=== PATIENT | female | born 1955 | race Caucasian/White ===

== ENCOUNTER 2017-10-09 08:52 | Day surgery (SDC) | payer MEDICARE ==
[2017-10-05 16:39] LABS: BASOPHILS % (AUTO) 0.3 % (0-1); EOSINOPHILS # (AUTO) 0.2 X10'3 (0-0.9); EOSINOPHILS % (AUTO) 1.9 % (0-6); LYMPHOCYTES # (AUTO) 3.6 X10'3 (1.1-4.8); LYMPHOCYTES % (AUTO) 32.8 % (21-51); MEAN CORPUSCULAR VOLUME 85.8 FL (78-98); MEAN PLATELET VOLUME 7.5 FL (7.4-10.4); MONOCYTES # (AUTO) 0.7 X10'3 (0-0.9); MONOCYTES % (AUTO) 6.5 % (2-12); NEUTROPHILS # (AUTO) 6.4 X10'3 (1.8-7.7); NEUTROPHILS % (AUTO) 58.5 % (42-75); PRE OP HEMATOCRIT 39.8 % (35.0-45.0); PRE OP HEMOGLOBIN 13.9 g/dL (12.0-16.0); PRE OP PLATELET COUNT 281 X10'3 (140-440); RED BLOOD COUNT 4.64 X10'6 (4.20-5.60); RED CELL DISTRIBUTION WIDTH 14.1 % (11.5-14.5)
[2017-10-05 16:57] LABS: ALBUMIN 4.3 G/DL (3.4-5.0); ALBUMIN/GLOBULIN RATIO 1.2 (1.1-1.5); ALKALINE PHOSPHATASE 76 IU/L (46-116); BLOOD UREA NITROGEN 16 MG/DL (7-18); BUN/CREATININE RATIO 18.8 (6.6-38.0); CALCIUM 9.7 MG/DL (8.5-10.1); CHLORIDE 106 MMOL/L (99-107); CREATININE 0.85 MG/DL (0.40-0.90); PRE OP ALT 42 U/L (30-65); PRE OP ANION GAP 8 (8-16); PRE OP AST 19 U/L (10-37); PRE OP BILIRUB, TOTAL 0.6 MG/DL (0.0-1.0); PRE OP GLUCOSE 112 MG/DL (70-104); PRE OP POTASSIUM 4.2 MMOL/L (3.4-5.1); PRE OP SODIUM 143 MMOL/L (135-145); TOTAL CARBON DIOXIDE 29.2 MMOL/L (24-32); eGFR 68 ML/MIN
[2017-10-05 17:09] LABS: PRE OP PROTIME 10.4 SECONDS (9.0-12.0)
[2017-10-05 17:10] LABS: PRE OP INR 1.1 INR
[~2017-10-09] VITALS: Ht 165.1 cm; Wt 80.7 kg
[2017-10-09] VITALS (19 sets, daily range): BP systolic 104–142; BP diastolic 38–84
[~2017-10-09 08:52] MED LIST: ATEN25TA PO; CEFOXITIN 1000 MG in NS IV.SOLN 100 ML IV ONE; CITA20TA16 PO; IBUP-1984 PO; METF10002; TRIA15OI9 TOP; famotidine 20mg tablet PO ONE
[2017-10-09] MEDS ORDERED: clindamycin phosphate 40gm vag cream ONE (09:07)
[2017-10-09] MEDS ORDERED: morphine 10mg/ml inj. ONE (09:08)
[2017-10-09] MEDS ORDERED: LIDOcaine 1% 30ml preserv. free vial ONE (09:09)
[2017-10-09] MEDS ORDERED: ceFAZolin 1000mg inj ONE (09:09)
[2017-10-09] MEDS ORDERED: BUPIVAcaine/PF 2.5 mg/ml (0.25%) 30ml vial ONE (09:09)
[2017-10-09] MEDS ORDERED: vasoPRESSIN 20 units/ml inj. ONE (09:10)
[2017-10-09] MEDS ORDERED: LIDOcaine 1% (10mg/ml) 2ml vial ONE (09:15)
[2017-10-09] MEDS: ringers solution, lacted 1,000 ML IV SCH ×6 (09:22→21:10)
[2017-10-09] MEDS ORDERED: sevoflurane 250ml liquid IH ONE (10:55)
[2017-10-09] MEDS ORDERED: fentaNYL /PF 50mcg/ml 5ml ampule ONE (10:59)
[2017-10-09] MEDS ORDERED: midazolam 2 mg/2 ml injection ONE (10:59)
[2017-10-09] MEDS ORDERED: rocuronium 10mg/ml inj IV ONE (11:01)
[2017-10-09] MEDS ORDERED: LIDOcaine 2% (20mg/ml) 5ml vial ONE (11:01)
[2017-10-09] MEDS ORDERED: propofol inj 20 ML IV ONE (11:01)
[2017-10-09] MEDS ORDERED: ketorolac trometh. 30mg/ml inj. ONE (11:25)
[2017-10-09] MEDS ORDERED: fluoroscein sod 10% (100mg/ml) 5ml vial ONE (11:25)
[2017-10-09] MEDS ORDERED: ondansetron/PF 4mg/2ml inj ONE (11:25)
[2017-10-09] MEDS ORDERED: ringers solution, lacted 1,000 ML IV SCH (13:02)
[2017-10-09] MEDS ORDERED: morphine 2 MG/ML inj. syringe IV PRN ×2 (13:05)
[2017-10-09] MEDS ORDERED: meperidine/PF 50mg/ml syringe IV PRN ×3 (13:05)
[2017-10-09] MEDS ORDERED: ondansetron/PF 4mg/2ml inj IV PRN ×2 (13:05→13:10)
[2017-10-09] MEDS ORDERED: proCHLORperazine 10 MG/2 ml inj IV PRN (13:05)
[2017-10-09] MEDS ORDERED: diphenhydrAMINE 50 mg/ml inj IV PRN (13:10)
[2017-10-09] MEDS ORDERED: magnesium hydroxide 30ml (MOM) UD suspension PO PRN (13:10)
[2017-10-09] MEDS ORDERED: normal saline 500ml IV soln 500 ML IV PRN (13:10)
[2017-10-09] MEDS ORDERED: naloxone 0.4 mg/ml inj IV PRN (13:10)
[2017-10-09] MEDS ORDERED: ketorolac trometh. 30mg/ml inj. IV PRN (13:10)
[2017-10-09] MEDS ORDERED: HYDROcodone/acetaminophen 5mg/325mg tablet PO PRN ×2 (13:10)
[2017-10-09] MEDS ORDERED: CADD PCA waste documentation MC PRN (13:10)
[2017-10-09] MEDS ORDERED: temazepam 15mg capsule PO PRN (13:10)
[2017-10-09] MEDS: morphine/NS 5 mg/ml CADD 50 ML IV SCH ×6 (14:29→23:00)
[2017-10-09] MEDS: simethicone 80mg chew tab PO SCH (18:00)
[2017-10-09] MEDS: metFORMIN 500mg tablet PO SCH (19:36)
[2017-10-09] MEDS: docusate sod 100mg capsule PO SCH (19:36)
[2017-10-09] MEDS ORDERED: triamcinolone acetonide 0.1% ointment 15gm TP SCH (20:00)
[2017-10-10] MEDS: morphine/NS 5 mg/ml CADD 50 ML IV SCH ×4 (01:00→07:00)
[2017-10-10 04:31] VITALS: BP 118/61
[2017-10-10] MEDS: ringers solution, lacted 1,000 ML IV SCH (05:25)
[2017-10-10 06:31] LABS: BASOPHILS % (AUTO) 0.2 % (0-1); EOSINOPHILS # (AUTO) 0.2 X10'3 (0-0.9); EOSINOPHILS % (AUTO) 1.3 % (0-6); HEMATOCRIT 31.9 % (35.0-45.0); HEMOGLOBIN 11.4 g/dl (12.0-16.0); LYMPHOCYTES # (AUTO) 2.2 X10'3 (1.1-4.8); MEAN CORPUSCULAR HGB CONC 35.5 % (33.0-36.5); MEAN CORPUSCULAR VOLUME 84.6 FL (78-98); MEAN PLATELET VOLUME 7.4 FL (7.4-10.4); MONOCYTES # (AUTO) 0.9 X10'3 (0-0.9); MONOCYTES % (AUTO) 6.4 % (2-12); NEUTROPHILS # (AUTO) 11.4 X10'3 (1.8-7.7); NEUTROPHILS % (AUTO) 77.1 % (42-75); PLATELET COUNT 230 X10'3 (140-440); RED BLOOD COUNT 3.78 X10'6 (4.20-5.60); RED CELL DISTRIBUTION WIDTH 13.9 % (11.5-14.5); WHITE BLOOD COUNT 14.8 X10'3 (4.5-11.0)
[2017-10-10] MEDS ORDERED: citalopram 20mg tablet PO SCH (08:00)
[2017-10-10] MEDS ORDERED: metoprolol succinate 25mg (24-HOUR) SR. Tablet PO SCH (08:00)
[2017-10-10 08:07] VITALS: BP 104/49
[2017-10-10] MEDS: metFORMIN 500mg tablet PO SCH (08:17)
[2017-10-10] MEDS: docusate sod 100mg capsule PO SCH (08:18)
[2017-10-10] MEDS: simethicone 80mg chew tab PO SCH (08:20)
[2017-10-10 11:30] VITALS: BP 120/60
== END 2017-10-10 15:13 | disposition home or self-care (01) ==
LOC: PAS 08:52 → SUR 3N 13:10 → PAS 10-10 15:13
PROVIDERS: ATTEND Specialist
DX: N83.322 Acquired atrophy of left fallopian tube (principal); N83.321 Acquired atrophy of right fallopian tube; N80.0 Endometriosis of uterus; N88.8 Other specified noninflammatory disorders of cervix uteri; K66.0 Peritoneal adhesions (postprocedural) (postinfection); M19.90 Unspecified osteoarthritis, unspecified site; J45.909 Unspecified asthma, uncomplicated; E11.9 Type 2 diabetes mellitus without complications; G43.909 Migraine, unspecified, not intractable, without status migrainosus; I10 Essential (primary) hypertension; E66.9 Obesity, unspecified; F32.9 Major depressive disorder, single episode, unspecified; Z88.6 Allergy status to analgesic agent; Z68.29 Body mass index [BMI] 29.0-29.9, adult; Z98.890 Other specified postprocedural states; Z79.84 Long term (current) use of oral hypoglycemic drugs; Z79.1 Long term (current) use of non-steroidal anti-inflammatories (NSAID); Z79.899 Other long term (current) drug therapy; Z87.891 Personal history of nicotine dependence
CPT/HCPCS: 36415; 51992; 57240; 57268; 58552; 80053; 82948; 85025; 85610; 85730; 86885; 86900; 86901; 86920; A4315; A4355; C1771; J0690; J0694; J1885; J2001; J2250; J2270; J2405; J2704; J3010; J3490; J7030; J7042; J7120; 86870; 86902; 86905; 86922; 88302; 88307; A6250; A7000

== ENCOUNTER 2019-10-13 15:51 | Emergency (ER) | payer MEDICARE ==
[~2019-10-13] VITALS: Ht 165.1 cm; Wt 77.3 kg
[~2019-10-13 15:51] MED LIST changes: -CEFOXITIN 1000 MG in NS IV.SOLN 100 ML IV ONE; +METF-438; -METF10002; -famotidine 20mg tablet PO ONE
[2019-10-13 16:04] VITALS: BP 150/79
[2019-10-13] MEDS ORDERED: AZIT500T PO (17:08)
== END 2019-10-13 17:47 | disposition home or self-care (01) ==
LOC: ER 15:52
DX: J18.9 Pneumonia, unspecified organism (principal); Z20.828 Contact with and (suspected) exposure to other viral communicable diseases; J06.9 Acute upper respiratory infection, unspecified; I10 Essential (primary) hypertension; E11.9 Type 2 diabetes mellitus without complications; F41.9 Anxiety disorder, unspecified; Z79.2 Long term (current) use of antibiotics; Z79.899 Other long term (current) drug therapy
CPT/HCPCS: 36415; 71045; 87502; 87503; 87635; 99284

== ENCOUNTER 2021-09-26 19:55 | Emergency (ER) | payer BC, MEDICARE ==
[~2021-09-26] VITALS: Ht 165.1 cm; Wt 72.7 kg
[2021-09-26 20:41] LABS: BASOPHILS # (AUTO) 0.1 X10'3 (0-0.2); BASOPHILS % (AUTO) 0.7 % (0-1); EOSINOPHILS # (AUTO) 0.2 X10'3 (0-0.9); EOSINOPHILS % (AUTO) 1.9 % (0-6); HEMATOCRIT 38.5 % (35.0-45.0); HEMOGLOBIN 13.6 g/dl (12.0-16.0); LYMPHOCYTES # (AUTO) 3.6 X10'3 (1.1-4.8); LYMPHOCYTES % (AUTO) 31.9 % (21-51); MEAN CORPUSCULAR HEMOGLOBIN 29.9 PG (27.0-31.0); MEAN CORPUSCULAR HGB CONC 35.4 g/dL (33.0-36.5); MEAN CORPUSCULAR VOLUME 84.4 FL (78-98); MEAN PLATELET VOLUME 7.9 FL (7.4-10.4); MONOCYTES # (AUTO) 0.8 X10'3 (0-0.9); NEUTROPHILS # (AUTO) 6.5 X10'3 (1.8-7.7); NEUTROPHILS % (AUTO) 58.5 % (42-75); PLATELET COUNT 254 X10'3 (140-440); RED BLOOD COUNT 4.56 X10'6 (4.20-5.60); RED CELL DISTRIBUTION WIDTH 13.5 % (11.5-14.5); WHITE BLOOD COUNT 11.2 X10'3 (4.5-11.0)
[2021-09-26 20:46] LABS: ALANINE AMINOTRANSFERASE 26 U/L (12-78); ALBUMIN 3.9 G/DL (3.4-5.0); ALBUMIN/GLOBULIN RATIO 1.1 (1.1-1.5); ALKALINE PHOSPHATASE 77 IU/L (46-116); BILIRUBIN,TOTAL 0.6 MG/DL (0.1-1.0); BLOOD UREA NITROGEN 15 MG/DL (7-18); BUN/CREATININE RATIO 18.3 (6.6-38.0); CALCIUM 9.2 MG/DL (8.5-10.1); CHLORIDE 105 MMOL/L (99-107); CREATININE 0.82 MG/DL (0.40-0.90); TOTAL PROTEIN 7.3 G/DL (6.4-8.2); eGFR 70 ML/MIN
[2021-09-26 20:53] LABS: ANION GAP 8 (8-16); GLUCOSE 218 MG/DL (70-104); POTASSIUM 3.7 MMOL/L (3.5-5.1); SODIUM 139 MMOL/L (135-145)
[2021-09-26] MEDS ORDERED: aspirin 325mg tablet PO ONE (20:55)
[2021-09-26 20:57] LABS: ASPARTATE AMINO TRANSFERASE 23 U/L (10-37)
[2021-09-26 21:50] VITALS: BP 161/80
== END 2021-09-26 21:54 | disposition home or self-care (01) ==
LOC: ER 19:56
DX: R07.89 Other chest pain (principal); R42 Dizziness and giddiness; R61 Generalized hyperhidrosis; I10 Essential (primary) hypertension; E11.9 Type 2 diabetes mellitus without complications; Z79.899 Other long term (current) drug therapy
CPT/HCPCS: 36415; 71045; 80053; 83880; 84484; 85025; 93005; 99285

== ENCOUNTER 2023-09-01 13:12 | Emergency (ER) | payer MEDICARE, MEDICAID ==
[~2023-09-01] VITALS: Ht 165.1 cm; Wt 68.5 kg
[2023-09-01 14:18] VITALS: TEMP 98.5
[2023-09-01 14:58] LABS: BASOPHILS # (AUTO) 0.1 X10'3 (0-0.2); BASOPHILS % (AUTO) 0.8 % (0-1); EOSINOPHILS # (AUTO) 0.2 X10'3 (0-0.9); EOSINOPHILS % (AUTO) 2.6 % (0-6); HEMATOCRIT 38.8 % (35.0-45.0); HEMOGLOBIN 13.5 g/dl (12.0-16.0); LYMPHOCYTES # (AUTO) 2.7 X10'3 (1.1-4.8); LYMPHOCYTES % (AUTO) 30.4 % (21-51); MEAN CORPUSCULAR HEMOGLOBIN 29.4 PG (27.0-31.0); MEAN CORPUSCULAR HGB CONC 34.8 g/dL (33.0-36.5); MEAN CORPUSCULAR VOLUME 84.4 FL (78-98); MEAN PLATELET VOLUME 7.2 FL (7.4-10.4); MONOCYTES # (AUTO) 0.7 X10'3 (0-0.9); MONOCYTES % (AUTO) 7.8 % (2-12); NEUTROPHILS # (AUTO) 5.1 X10'3 (1.8-7.7); NEUTROPHILS % (AUTO) 58.4 % (42-75); PLATELET COUNT 204 X10'3 (140-440); RED CELL DISTRIBUTION WIDTH 13.6 % (11.5-14.5); WHITE BLOOD COUNT 8.8 X10'3 (4.5-11.0)
[2023-09-01 15:02] LABS: CLARITY,URINE SLIGHTLY CLOUDY (Clear); COLOR,URINE ORANGE (Yellow); UA COLLECTION TYPE CLN CATCH MIDSTREAM
[2023-09-01 15:07] LABS: ANION GAP 7 (8-16); BLOOD UREA NITROGEN 18 MG/DL (7-18); BUN/CREATININE RATIO 22.5 (10.0-20.0); CHLORIDE 108 MMOL/L (99-107); GLUCOSE 100 MG/DL (70-104); LIPASE 63 U/L (16-77); POTASSIUM 4.6 MMOL/L (3.5-5.1); SODIUM 145 MMOL/L (135-145); TOTAL CARBON DIOXIDE 29.6 MMOL/L (24-32); eCRCL 63 ML/MIN; eGFR 72 ML/MIN
[2023-09-01 15:44] LABS: BACTERIA,URINE FEW /HPF (Neg); MUCUS STRANDS NONE SEEN /LPF (Neg); RBC,URINE 20-50 /HPF (0-2); SQUAMOUS EPITHELIAL CELL,UR FEW /LPF (FEW); WBC CLUMPS,URINE FEW /HPF (NEGATIVE); WBC,URINE 50-100 /HPF (0-4)
[2023-09-01] MEDS ORDERED: DIF150T PO (16:59)
[2023-09-01] MEDS ORDERED: PHEN-716 PO (16:59)
[2023-09-01] MEDS ORDERED: CEPH-585 PO (16:59)
[2023-09-01] MEDS: CefTRIAXone 1000mg IM Kit (w/lidocaine diluent) IM ONE (17:08)
[2023-09-01 17:15] VITALS: BP 129/66; PULSE 80; RESP 18; O2SAT 97
== END 2023-09-01 17:16 | disposition home or self-care (01) ==
LOC: ER 13:12
DX: N39.0 Urinary tract infection, site not specified (principal); E11.9 Type 2 diabetes mellitus without complications; I10 Essential (primary) hypertension; Z79.899 Other long term (current) drug therapy; Z79.1 Long term (current) use of non-steroidal anti-inflammatories (NSAID)
CPT/HCPCS: 36415; 74176; 80048; 81001; 83690; 85025; 87077; 87088; 87186; 96372; 99285; J0696

== ENCOUNTER 2023-10-08 07:56 | Emergency (ER) | payer OTHER, MEDICAID ==
[~2023-10-08] VITALS: Ht 165.1 cm; Wt 78.4 kg
[~2023-10-08 07:56] MED LIST changes: +PHEN-716 PO
[2023-10-08 08:03] VITALS: TEMP 98
[2023-10-08 08:42] LABS: BASOPHILS # (AUTO) 0.1 X10'3 (0-0.2); BASOPHILS % (AUTO) 0.8 % (0-1); EOSINOPHILS # (AUTO) 0.2 X10'3 (0-0.9); EOSINOPHILS % (AUTO) 2.5 % (0-6); HEMATOCRIT 39.2 % (35.0-45.0); HEMOGLOBIN 13.8 g/dl (12.0-16.0); LYMPHOCYTES # (AUTO) 2.5 X10'3 (1.1-4.8); LYMPHOCYTES % (AUTO) 27.1 % (21-51); MEAN CORPUSCULAR HGB CONC 35.3 g/dL (33.0-36.5); MEAN CORPUSCULAR VOLUME 84.8 FL (78-98); MEAN PLATELET VOLUME 6.9 FL (7.4-10.4); MONOCYTES # (AUTO) 0.6 X10'3 (0-0.9); MONOCYTES % (AUTO) 6.3 % (2-12); NEUTROPHILS # (AUTO) 5.8 X10'3 (1.8-7.7); NEUTROPHILS % (AUTO) 63.3 % (42-75); PLATELET COUNT 222 X10'3 (140-440); RED BLOOD COUNT 4.62 X10'6 (4.20-5.60); RED CELL DISTRIBUTION WIDTH 13.9 % (11.5-14.5); WHITE BLOOD COUNT 9.1 X10'3 (4.5-11.0)
[2023-10-08 09:20] LABS: BILIRUBIN,URINE NEGATIVE (Neg); CLARITY,URINE CLOUDY (Clear); COLOR,URINE YELLOW (Yellow); GLUCOSE, URINE NEGATIVE (Neg); KETONES,URINE NEGATIVE (Neg); LEUKOCYTE ESTERASE ,URINE SMALL (Neg); NITRITES, URINE NEGATIVE (Neg); OCCULT BLOOD,URINE LARGE (Neg); PH,URINE 5.5 (4.8-8.0); PROTEIN,URINE 30 mg/dl (Neg); UROBILINOGEN,URINE 0.2 E.U/dL (0.2-1.0)
[2023-10-08 09:29] LABS: BLOOD UREA NITROGEN 14 MG/DL (7-18); BUN/CREATININE RATIO 17.5 (10.0-20.0); CHLORIDE 108 MMOL/L (99-107); GLUCOSE 165 MG/DL (70-104); POTASSIUM 4.7 MMOL/L (3.5-5.1); SODIUM 141 MMOL/L (135-145); eCRCL 63 ML/MIN; eGFR 72 ML/MIN
[2023-10-08 09:30] LABS: UA COLLECTION TYPE CLN CATCH MIDSTREAM
[2023-10-08 09:33] LABS: MUCUS STRANDS FEW /LPF (Neg); RBC,URINE TNTC /HPF (0-2); SQUAMOUS EPITHELIAL CELL,UR MODERATE /LPF (FEW); WBC,URINE TNTC /HPF (0-4)
[2023-10-08 09:34] LABS: BACTERIA,URINE 2+ /HPF (Neg); WBC CLUMPS,URINE MANY /HPF (NEGATIVE)
[2023-10-08 09:50] LABS: URINE HCG NEGATIVE (NEG)
[2023-10-08 09:50] LABS: ALANINE AMINOTRANSFERASE 22 U/L (12-78); ALBUMIN 3.8 G/DL (3.4-5.0); ALKALINE PHOSPHATASE 66 IU/L (46-116); ANION GAP 9 (8-16); ASPARTATE AMINO TRANSFERASE 12 U/L (10-37); BILIRUBIN,TOTAL 0.3 MG/DL (0.1-1.0); CALCIUM 9.3 MG/DL (8.5-10.1); LIPASE 36 U/L (16-77); TOTAL CARBON DIOXIDE 23.7 MMOL/L (24-32); TOTAL PROTEIN 7.5 G/DL (6.4-8.2)
[2023-10-08] MEDS: CefTRIAXone 2gm/D5W 50ml BAG 50 ML IV ONE (11:28)
[2023-10-08] MEDS: morphine 4 MG/ML inj SYRINge IV PRN (11:29)
[2023-10-08] MEDS: ondansetron/PF 4mg/2ml inj IV ONE (11:30)
[2023-10-08] MEDS: normal saline 1000ML IV soln IVB ONE (11:30)
[2023-10-08 12:03] VITALS: BP 160/80; PULSE 60; O2SAT 98
[2023-10-08] MEDS: HYDROmorphone 1 mg/ml syringe IV ONE (12:46)
[2023-10-08 12:49] VITALS: RESP 22
[2023-10-08] MEDS: HYDROmorphone 1 mg/ml syringe IM ONE (12:49)
[2023-10-08] MEDS ORDERED: OXYC-145 PO (13:24)
[2023-10-08] MEDS ORDERED: CEPH-585 PO (13:24)
== END 2023-10-08 14:57 | disposition home or self-care (01) ==
LOC: ER 07:56
DX: N30.00 Acute cystitis without hematuria (principal); R10.30 Lower abdominal pain, unspecified; I10 Essential (primary) hypertension; E11.9 Type 2 diabetes mellitus without complications; Z79.899 Other long term (current) drug therapy; Z79.1 Long term (current) use of non-steroidal anti-inflammatories (NSAID)
CPT/HCPCS: 36415; 74176; 80053; 81001; 81025; 83690; 85025; 87088; 96365; 96372; 96375; 99285; J0696; J1170; J2270; J2405; J7030

== ENCOUNTER 2023-12-13 08:14 | Emergency (ER) | payer OTHER, MEDICAID ==
[~2023-12-13] VITALS: Ht 165.1 cm; Wt 74.1 kg
[~2023-12-13 08:14] MED LIST changes: +OXYC-145 PO
[2023-12-13 08:17] VITALS: BP 156/103; PULSE 60; RESP 16; TEMP 96.1; O2SAT 99
[2023-12-13 09:40] LABS: BILIRUBIN,URINE NEGATIVE (Neg); CLARITY,URINE CLOUDY (Clear); COLOR,URINE YELLOW (Yellow); GLUCOSE, URINE NEGATIVE (Neg); KETONES,URINE NEGATIVE (Neg); LEUKOCYTE ESTERASE ,URINE SMALL (Neg); NITRITES, URINE NEGATIVE (Neg); OCCULT BLOOD,URINE LARGE (Neg); PROTEIN,URINE 100 mg/dl (Neg); UROBILINOGEN,URINE 0.2 E.U/dL (0.2-1.0)
[2023-12-13 09:46] LABS: UA COLLECTION TYPE CLN CATCH MIDSTREAM
[2023-12-13 09:51] LABS: RBC,URINE TNTC /HPF (0-2); SQUAMOUS EPITHELIAL CELL,UR FEW /LPF (FEW); WBC,URINE TNTC /HPF (0-4)
[2023-12-13 09:53] LABS: BACTERIA,URINE FEW /HPF (Neg)
[2023-12-13] MEDS ORDERED: CEFD300C3 PO (10:09)
[2023-12-13] MEDS ORDERED: LACT1CAP26 PO (10:09)
[2023-12-13] MEDS ORDERED: PHEN-786 PO (10:09)
[2023-12-13] MEDS ORDERED: PANT-47 PO (10:09)
[2023-12-13] MEDS: HYDROcodone/acetaminophen 10/325mg tab PO ONE (10:49)
== END 2023-12-13 10:54 | disposition home or self-care (01) ==
LOC: ER 08:15
DX: N39.0 Urinary tract infection, site not specified (principal); R10.30 Lower abdominal pain, unspecified; R30.0 Dysuria; E11.9 Type 2 diabetes mellitus without complications; I10 Essential (primary) hypertension
CPT/HCPCS: 81001; 87088; 99283

== ENCOUNTER 2023-12-28 07:52 | Day surgery (SDC) | payer OTHER, MEDICAID ==
[2023-12-22 15:18] LABS: BILIRUBIN,URINE NEGATIVE (Neg); CLARITY,URINE CLOUDY (Clear); COLOR,URINE YELLOW (Yellow); GLUCOSE, URINE NEGATIVE (Neg); KETONES,URINE NEGATIVE (Neg); LEUKOCYTE ESTERASE ,URINE MODERATE (Neg); NITRITES, URINE NEGATIVE (Neg); OCCULT BLOOD,URINE LARGE (Neg); PROTEIN,URINE 100 mg/dl (Neg); UROBILINOGEN,URINE 0.2 E.U/dL (0.2-1.0)
[2023-12-22 15:34] LABS: BASOPHILS # (AUTO) 0.1 X10'3 (0-0.2); BASOPHILS % (AUTO) 0.8 % (0-1); EOSINOPHILS # (AUTO) 0.3 X10'3 (0-0.9); EOSINOPHILS % (AUTO) 3.2 % (0-6); LYMPHOCYTES # (AUTO) 3.4 X10'3 (1.1-4.8); LYMPHOCYTES % (AUTO) 33.9 % (21-51); MEAN CORPUSCULAR HEMOGLOBIN 29.5 PG (27.0-31.0); MEAN CORPUSCULAR VOLUME 84.2 FL (78-98); MEAN PLATELET VOLUME 7.4 FL (7.4-10.4); MONOCYTES # (AUTO) 0.6 X10'3 (0-0.9); MONOCYTES % (AUTO) 6.1 % (2-12); NEUTROPHILS # (AUTO) 5.7 X10'3 (1.8-7.7); PRE OP HEMATOCRIT 36.9 % (35.0-45.0); PRE OP HEMOGLOBIN 12.9 g/dL (12.0-16.0); PRE OP PLATELET COUNT 222 X10'3 (140-440); PRE OP WHITE BLOOD COUNT 10.1 10'3 (4.8-10.8); RED BLOOD COUNT 4.38 X10'6 (4.20-5.60); RED CELL DISTRIBUTION WIDTH 13.1 % (11.5-14.5)
[2023-12-22 15:36] LABS: ALBUMIN 4.1 G/DL (3.4-5.0); ALBUMIN/GLOBULIN RATIO 1.1 (1.1-1.5); ALKALINE PHOSPHATASE 62 IU/L (46-116); BLOOD UREA NITROGEN 19 MG/DL (7-18); BUN/CREATININE RATIO 20.7 (10.0-20.0); CALCIUM 8.9 MG/DL (8.5-10.1); CHLORIDE 108 MMOL/L (99-107); CREATININE 0.92 MG/DL (0.40-0.90); PRE OP ALT 26 U/L (30-65); PRE OP ANION GAP 8 (8-16); PRE OP AST 13 U/L (10-37); PRE OP BILIRUB, TOTAL 0.4 MG/DL (0.0-1.0); PRE OP GLUCOSE 86 MG/DL (70-104); PRE OP POTASSIUM 3.7 MMOL/L (3.4-5.1); PRE OP SODIUM 143 MMOL/L (135-145); TOTAL CARBON DIOXIDE 26.8 MMOL/L (24-32); TOTAL PROTEIN 7.7 G/DL (6.4-8.2); eGFR 61 ML/MIN
[2023-12-22 15:39] LABS: UA COLLECTION TYPE CLN CATCH MIDSTREAM
[2023-12-22 15:52] LABS: WBC,URINE TNTC /HPF (0-4)
[2023-12-22 15:53] LABS: RBC,URINE 20-50 /HPF (0-2)
[2023-12-22 15:56] LABS: BACTERIA,URINE FEW /HPF (Neg); SQUAMOUS EPITHELIAL CELL,UR FEW /LPF (FEW)
[~2023-12-28] VITALS: Ht 165.1 cm; Wt 76.1 kg
[2023-12-28] VITALS (9 sets, daily range): BP systolic 129–156; BP diastolic 65–88; PULSE 64–77; RESP 14–17; TEMP 98.3; O2SAT 97–98
[2023-12-28] MEDS: DOCUMENT DATE & TIME OF BETA-BLOCKER PO ONE (05:30)
[2023-12-28] MEDS: cefazolin 2gm/D5W 100mL 100 ML IV ONE (05:30)
[~2023-12-28 07:52] MED LIST changes: -ATEN25TA PO; -CITA20TA16 PO; +GLIP5TAB23 PO; +HYDR-3973 PO; -IBUP-1984 PO; +IBUP-1986 PO; -METF-438; +METO-395 PO; -OXYC-145 PO; -PHEN-716 PO; +SEMA1PEN3 SQ; -TRIA15OI9 TOP; +ZOLP5TAB8 PO
[2023-12-28] MEDS ORDERED: ringers solution, lacted 1,000 ML IV SCH (08:15)
[2023-12-28] MEDS ORDERED: ondansetron/PF 4mg/2ml inj IV PRN (08:15)
[2023-12-28] MEDS ORDERED: labetalol 20mg/4ml (5mg/ml) syringe IV PRN (08:15)
[2023-12-28] MEDS ORDERED: meperidine/PF 25mg/ml syringe IV PRN ×3 (08:15)
[2023-12-28] MEDS ORDERED: morphine 2 MG/ML inj. syringe IV PRN (08:15)
[2023-12-28] MEDS ORDERED: proCHLORperazine 10 MG/2 ml inj IV PRN (08:15)
[2023-12-28] MEDS ORDERED: morphine 4 MG/ML inj SYRINge IV PRN (08:15)
[2023-12-28] MEDS ORDERED: enalaprilat dihydrate 2.5mg/2ml vial IV PRN (08:15)
[2023-12-28] MEDS: ringers solution, lacted 1,000 ML IV SCH (08:36)
[2023-12-28] MEDS: famotidine 20mg tablet PO ONE (08:36)
[2023-12-28] MEDS: insulin regular, human 10 units/0.1 ml syringe SQ ONE ×2 (09:27→13:29)
[2023-12-28] MEDS: metoprolol succinate 25mg (24-HOUR) SR. Tablet PO ONE (09:27)
[2023-12-28] MEDS ORDERED: sevoflurane 250ml liquid IH ONE (11:11)
[2023-12-28] MEDS ORDERED: fentaNYL/PF 50MCG/1 ML 2ML syringe ONE (11:15)
[2023-12-28] MEDS ORDERED: midazolam 1 mg/ML 2ml injection ONE (11:15)
[2023-12-28] MEDS: BUPIVAcaine 2.5mg/ml inj 50ml vial (contains preservative) ONE (11:42)
[2023-12-28] MEDS ORDERED: propofol inj 20 ML IV ONE (11:54)
[2023-12-28] MEDS ORDERED: ondansetron/PF 4mg/2ml inj ONE (11:58)
[2023-12-28] MEDS: bacitracin 15gm ointment TP ONE (12:07)
[2023-12-28] MEDS: insulin regular, human 10 units/0.1 ml syringe ONE (13:15)
== END 2023-12-28 13:15 | disposition home or self-care (01) ==
LOC: PAS 07:52
PROVIDERS: ATTEND Podiatrist Foot & Ankle Surgery
DX: M25.375 Other instability, left foot (principal); M89.9 Disorder of bone, unspecified; M24.575 Contracture, left foot; I10 Essential (primary) hypertension; E11.9 Type 2 diabetes mellitus without complications; E66.9 Obesity, unspecified; I20.9 Angina pectoris, unspecified; F41.9 Anxiety disorder, unspecified; Z87.891 Personal history of nicotine dependence; Z87.440 Personal history of urinary (tract) infections; Z79.1 Long term (current) use of non-steroidal anti-inflammatories (NSAID); Z79.84 Long term (current) use of oral hypoglycemic drugs; Z79.891 Long term (current) use of opiate analgesic; Z79.899 Other long term (current) drug therapy; Z90.710 Acquired absence of both cervix and uterus; Z98.890 Other specified postprocedural states; Z68.29 Body mass index [BMI] 29.0-29.9, adult
CPT/HCPCS: 14040; 28104; 28270; 36415; 73620; 80053; 81001; 82948; 85025; 87088; 93005; A6222; J0690; J1100; J1815; J2250; J2405; J2704; J3010; J3490; J7030; J7120; Z7506; Z7512; 76000; A4618; A6449; A7000

== ENCOUNTER 2024-02-12 03:53 | Emergency (ER) | payer OTHER, MEDICAID ==
[~2024-02-12] VITALS: Ht 165.1 cm; Wt 75.0 kg
[~2024-02-12 03:53] MED LIST changes: -HYDR-3973 PO
[2024-02-12 03:58] VITALS: TEMP 97.9
[2024-02-12 04:37] LABS: BASOPHILS # (AUTO) 0.1 X10'3 (0-0.2); BASOPHILS % (AUTO) 0.7 % (0-1); EOSINOPHILS # (AUTO) 0.2 X10'3 (0-0.9); EOSINOPHILS % (AUTO) 2.9 % (0-6); HEMATOCRIT 36.4 % (35.0-45.0); HEMOGLOBIN 12.6 g/dl (12.0-16.0); LYMPHOCYTES # (AUTO) 3.2 X10'3 (1.1-4.8); LYMPHOCYTES % (AUTO) 38.4 % (21-51); MEAN CORPUSCULAR HEMOGLOBIN 28.9 PG (27.0-31.0); MEAN CORPUSCULAR HGB CONC 34.6 g/dL (33.0-36.5); MEAN CORPUSCULAR VOLUME 83.5 FL (78-98); MEAN PLATELET VOLUME 7.3 FL (7.4-10.4); MONOCYTES # (AUTO) 0.6 X10'3 (0-0.9); MONOCYTES % (AUTO) 6.9 % (2-12); NEUTROPHILS # (AUTO) 4.3 X10'3 (1.8-7.7); NEUTROPHILS % (AUTO) 51.1 % (42-75); PLATELET COUNT 231 X10'3 (140-440); RED BLOOD COUNT 4.35 X10'6 (4.20-5.60); RED CELL DISTRIBUTION WIDTH 13.5 % (11.5-14.5); WHITE BLOOD COUNT 8.4 X10'3 (4.5-11.0)
[2024-02-12 04:42] LABS: ALANINE AMINOTRANSFERASE 26 U/L (12-78); ALBUMIN 3.8 G/DL (3.4-5.0); ALKALINE PHOSPHATASE 67 IU/L (46-116); ANION GAP 12 (8-16); ASPARTATE AMINO TRANSFERASE 14 U/L (10-37); BILIRUBIN,TOTAL 0.6 MG/DL (0.1-1.0); BLOOD UREA NITROGEN 17 MG/DL (7-18); BUN/CREATININE RATIO 18.5 (10.0-20.0); CALCIUM 9.2 MG/DL (8.5-10.1); CHLORIDE 103 MMOL/L (99-107); CREATININE 0.92 MG/DL (0.40-0.90); GLUCOSE 186 MG/DL (70-104); LIPASE 57 U/L (16-77); POTASSIUM 3.7 MMOL/L (3.5-5.1); SODIUM 140 MMOL/L (135-145); TOTAL CARBON DIOXIDE 25.4 MMOL/L (24-32); TOTAL PROTEIN 7.5 G/DL (6.4-8.2); eCRCL 54 ML/MIN; eGFR 61 ML/MIN
[2024-02-12] MEDS: ondansetron 4mg rapidly disintigrating tab PO ONE (04:45)
[2024-02-12] MEDS: ketorolac trometh. 30mg/ml inj. IM ONE (04:49)
[2024-02-12 04:59] LABS: BILIRUBIN,URINE NEGATIVE (Neg); CLARITY,URINE CLOUDY (Clear); COLOR,URINE YELLOW (Yellow); GLUCOSE, URINE NEGATIVE (Neg); KETONES,URINE NEGATIVE (Neg); LEUKOCYTE ESTERASE ,URINE SMALL (Neg); NITRITES, URINE NEGATIVE (Neg); OCCULT BLOOD,URINE LARGE (Neg); PH,URINE 5.5 (4.8-8.0); PROTEIN,URINE 30 mg/dl (Neg); UROBILINOGEN,URINE 0.2 E.U/dL (0.2-1.0)
[2024-02-12 05:01] LABS: UA COLLECTION TYPE CLN CATCH MIDSTREAM
[2024-02-12 05:07] LABS: BACTERIA,URINE FEW /HPF (Neg); RBC,URINE 50-100 /HPF (0-2); SQUAMOUS EPITHELIAL CELL,UR MODERATE /LPF (FEW); WBC,URINE 50-100 /HPF (0-4)
[2024-02-12] MEDS ORDERED: ONDA-243 PO (05:22)
[2024-02-12] MEDS ORDERED: HYDR-3965 PO (05:22)
[2024-02-12] MEDS ORDERED: LEVO-65 PO (05:22)
[2024-02-12 05:46] VITALS: BP 118/72; PULSE 82; O2SAT 97
[2024-02-12 05:49] VITALS: RESP 15
== END 2024-02-12 05:57 | disposition home or self-care (01) ==
LOC: ER 03:57
DX: N30.00 Acute cystitis without hematuria (principal); I10 Essential (primary) hypertension; E11.9 Type 2 diabetes mellitus without complications; F41.9 Anxiety disorder, unspecified; Z79.84 Long term (current) use of oral hypoglycemic drugs; Z79.899 Other long term (current) drug therapy
CPT/HCPCS: 36415; 80053; 81001; 83690; 85025; 87088; 96372; 99283; J1885

== ENCOUNTER 2024-02-28 20:36 | Emergency (ER) | payer OTHER, MEDICAID ==
[~2024-02-28] VITALS: Ht 165.1 cm; Wt 74.8 kg
[~2024-02-28 20:36] MED LIST changes: +HYDR-3965 PO; +ONDA-243 PO
[2024-02-28 20:52] VITALS: BP 135/83; PULSE 72; RESP 16; TEMP 97.4; O2SAT 98
[2024-02-28 22:04] LABS: BILIRUBIN,URINE NEGATIVE (Neg); CLARITY,URINE CLOUDY (Clear); COLOR,URINE YELLOW (Yellow); GLUCOSE, URINE NEGATIVE (Neg); KETONES,URINE NEGATIVE (Neg); LEUKOCYTE ESTERASE ,URINE SMALL (Neg); NITRITES, URINE NEGATIVE (Neg); OCCULT BLOOD,URINE MODERATE (Neg); PROTEIN,URINE 100 mg/dl (Neg); UROBILINOGEN,URINE 0.2 E.U/dL (0.2-1.0)
[2024-02-28 22:17] LABS: UA COLLECTION TYPE CLN CATCH MIDSTREAM
[2024-02-28 22:18] LABS: MUCUS STRANDS FEW /LPF (Neg); SQUAMOUS EPITHELIAL CELL,UR MODERATE /LPF (FEW); WBC,URINE 50-100 /HPF (0-4)
[2024-02-28 22:19] LABS: BACTERIA,URINE FEW /HPF (Neg); RBC,URINE 50-100 /HPF (0-2)
[2024-02-28] MEDS ORDERED: CEPH-585 PO (22:27)
[2024-02-28] MEDS: CefTRIAXone 1000mg IM Kit (w/lidocaine diluent) IM ONE (22:40)
== END 2024-02-28 22:54 | disposition home or self-care (01) ==
LOC: ER 20:36
DX: N39.0 Urinary tract infection, site not specified (principal); I10 Essential (primary) hypertension; E11.9 Type 2 diabetes mellitus without complications; F41.9 Anxiety disorder, unspecified; Z79.899 Other long term (current) drug therapy; Z79.1 Long term (current) use of non-steroidal anti-inflammatories (NSAID)
CPT/HCPCS: 81001; 87088; 96372; 99283; J0696

== ENCOUNTER 2024-03-27 07:04 | Inpatient (IN) | payer OTHER, MEDICAID ==
[~2024-03-27] VITALS: Ht 165.1 cm; Wt 73.8 kg
[~2024-03-27 07:04] MED LIST changes: -HYDR-3965 PO
[2024-03-27] MEDS: normal saline 1000ML IV soln IVB ONE ×2 (07:30→08:29)
[2024-03-27 07:49] LABS: BASOPHILS # (AUTO) 0.1 X10'3 (0-0.2); BASOPHILS % (AUTO) 0.5 % (0-1); EOSINOPHILS # (AUTO) 0.2 X10'3 (0-0.9); EOSINOPHILS % (AUTO) 1.7 % (0-6); HEMATOCRIT 36.5 % (35.0-45.0); HEMOGLOBIN 12.4 g/dl (12.0-16.0); LYMPHOCYTES # (AUTO) 2.1 X10'3 (1.1-4.8); LYMPHOCYTES % (AUTO) 18.8 % (21-51); MEAN CORPUSCULAR HEMOGLOBIN 28.3 PG (27.0-31.0); MEAN CORPUSCULAR VOLUME 83.2 FL (78-98); MEAN PLATELET VOLUME 7.2 FL (7.4-10.4); MONOCYTES # (AUTO) 0.5 X10'3 (0-0.9); MONOCYTES % (AUTO) 4.6 % (2-12); NEUTROPHILS # (AUTO) 8.3 X10'3 (1.8-7.7); NEUTROPHILS % (AUTO) 74.4 % (42-75); PLATELET COUNT 332 X10'3 (140-440); RED BLOOD COUNT 4.39 X10'6 (4.20-5.60); RED CELL DISTRIBUTION WIDTH 13.6 % (11.5-14.5); WHITE BLOOD COUNT 11.2 X10'3 (4.5-11.0)
[2024-03-27 07:51] LABS: BILIRUBIN,URINE NEGATIVE (Neg); CLARITY,URINE SLIGHTLY CLOUDY (Clear); COLOR,URINE YELLOW (Yellow); GLUCOSE, URINE 100 mg/dl (Neg); KETONES,URINE NEGATIVE (Neg); LEUKOCYTE ESTERASE ,URINE NEGATIVE (Neg); NITRITES, URINE NEGATIVE (Neg); OCCULT BLOOD,URINE LARGE (Neg); PROTEIN,URINE >=300 mg/dl (Neg); UROBILINOGEN,URINE 0.2 E.U/dL (0.2-1.0)
[2024-03-27 07:58] LABS: ALBUMIN 4.1 G/DL (3.4-5.0); ANION GAP 15 (8-16); BLOOD UREA NITROGEN 17 MG/DL (7-18); BUN/CREATININE RATIO 13.7 (10.0-20.0); CALCIUM 8.8 MG/DL (8.5-10.1); CHLORIDE 107 MMOL/L (99-107); CREATININE 1.24 MG/DL (0.40-0.90); GLUCOSE 194 MG/DL (70-104); POTASSIUM 3.7 MMOL/L (3.5-5.1); SODIUM 138 MMOL/L (135-145); TOTAL CARBON DIOXIDE 15.9 MMOL/L (24-32); eCRCL 40 ML/MIN; eGFR 43 ML/MIN
[2024-03-27 08:02] LABS: UA COLLECTION TYPE FOLEY CATH
[2024-03-27 08:05] LABS: FINE GRANULAR CAST 0-3 /LPF (NEGATIVE); HYALINE CASTS 0-3 /LPF (NEGATIVE); MUCUS STRANDS FEW /LPF (Neg); RBC,URINE TNTC /HPF (0-2); SQUAMOUS EPITHELIAL CELL,UR FEW /LPF (FEW)
[2024-03-27 08:06] LABS: BACTERIA,URINE FEW /HPF (Neg); TRANSITIONAL EPI CELLS,URINE FEW /HPF; WBC,URINE TNTC /HPF (0-4)
[2024-03-27] MEDS: CefTRIAXone 2gm/D5W 50ml BAG 50 ML IV ONE (09:30)
[2024-03-27] MEDS ORDERED: OXYB5TAB21 PO (11:12)
[2024-03-27] MEDS ORDERED: CIME400T PO (11:12)
[2024-03-27 15:37] VITALS: BP 170/83; PULSE 68; RESP 18; TEMP 98.6; O2SAT 98
[2024-03-27] MEDS: HYDROcodone/acetaminophen 5mg/325mg tablet PO PRN (17:06)
[2024-03-27 18:00] VITALS: BP 174/89; PULSE 65; RESP 18; TEMP 97.4; O2SAT 99
[2024-03-27] MEDS ORDERED: DEXTROSE 15 GM of carb/4 tabs (each vial/BOTTLE has 4 tablets) PO PRN ×2 (20:50)
[2024-03-27] MEDS ORDERED: glucagon, human recombinant 1mg kit SUBCUT PRN (20:50)
[2024-03-27] MEDS ORDERED: dextrose 50%-water 50ml dispensing syringe IV PRN ×2 (20:50)
[2024-03-27 21:43] LABS: HEMOGLOBIN A1C 6.1 % (4.5-6.2)
[2024-03-27 22:00] VITALS: BP 158/74; PULSE 64; RESP 18; TEMP 97.9; O2SAT 97
[2024-03-27] MEDS: insulin glargine (Lantus) pen - multi-dose SQ SCH (22:32)
[2024-03-27] MEDS: INSULIN LISPRO 100 UNIT/ML INSULN.PEN MULTI-DOSE SQ SCH (22:35)
[2024-03-28] VITALS (7 sets, daily range): BP systolic 142–172; BP diastolic 71–79; PULSE 57–67; RESP 15–20; TEMP 96.9–98.1; O2SAT 98–99
[2024-03-28] MEDS: phenazopyridine 100mg tablet PO PRN ×2 (08:05→16:32)
[2024-03-28] MEDS: oxybutynin 5mg tablet PO SCH (08:05)
[2024-03-28] MEDS: metoprolol succinate 25mg (24-HOUR) SR. Tablet PO SCH (08:14)
[2024-03-28] MEDS: HYDROcodone/acetaminophen 5mg/325mg tablet PO PRN (08:47)
[2024-03-28] MEDS: INSULIN LISPRO 100 UNIT/ML INSULN.PEN MULTI-DOSE SQ SCH (09:27)
[2024-03-28] MEDS: CefTRIAXone 2gm/D5W 50ml BAG 50 ML IV SCH (09:29)
[2024-03-28 16:55] LABS: ALBUMIN 3.2 G/DL (3.4-5.0); ANION GAP 10 (8-16); BLOOD UREA NITROGEN 15 MG/DL (7-18); BUN/CREATININE RATIO 19.5 (10.0-20.0); CALCIUM 9.2 MG/DL (8.5-10.1); CHLORIDE 108 MMOL/L (99-107); CREATININE 0.77 MG/DL (0.40-0.90); GLUCOSE 127 MG/DL (70-104); POTASSIUM 3.8 MMOL/L (3.5-5.1); SODIUM 142 MMOL/L (135-145); TOTAL CARBON DIOXIDE 24.1 MMOL/L (24-32); eCRCL 65 ML/MIN; eGFR 75 ML/MIN
[2024-03-29 08:00] VITALS: RESP 16; O2SAT 99
[2024-03-29 10:00] VITALS: BP 146/77; PULSE 77; RESP 17; TEMP 98; O2SAT 99
[2024-03-29 19:30] VITALS: BP 151/75; PULSE 78; RESP 16; TEMP 99; O2SAT 96
[2024-03-29 20:00] VITALS: RESP 18; O2SAT 96
[2024-03-29 23:00] VITALS: BP 148/72; PULSE 82; RESP 18; TEMP 98.7; O2SAT 96
[2024-03-30] VITALS (9 sets, daily range): BP systolic 145–177; BP diastolic 78–100; PULSE 67–79; RESP 16–20; TEMP 97.3–99; O2SAT 18–98
[2024-03-30] MEDS: hydrALAZINE 20mg/ml inj. IV ONE (18:32)
[2024-03-30] MEDS: metoprolol succinate 25mg (24-HOUR) SR. Tablet PO ONE (19:41)
[2024-03-30] MEDS: HYDROcodone/acetaminophen 5mg/325mg tablet PO ONE (22:53)
[2024-03-31 07:06] VITALS: BP 165/88; PULSE 62; RESP 16; TEMP 97.4; O2SAT 99
[2024-03-31 08:00] VITALS: RESP 16
[2024-03-31 10:30] VITALS: BP 158/77; PULSE 70; RESP 16; TEMP 98.6; O2SAT 98
[2024-03-31] MEDS ORDERED: CIPR-202 PO (13:40)
== END 2024-03-31 15:11 | disposition home or self-care (01) | DRG 689 ==
LOC: ER 07:04 → ED HOLD 12:12 → ORTHO 4S 15:35 → OBSVTOIN 03-28 09:00 → SUR 3N 03-29 19:25
PROVIDERS: ADMIT Internal Medicine; ATTEND Internal Medicine
DX: N30.00 Acute cystitis without hematuria (principal); N17.0 Acute kidney failure with tubular necrosis; E87.20 Acidosis, unspecified; E11.9 Type 2 diabetes mellitus without complications; G89.29 Other chronic pain; I10 Essential (primary) hypertension; F41.9 Anxiety disorder, unspecified; R32 Unspecified urinary incontinence; N32.89 Other specified disorders of bladder; Z79.84 Long term (current) use of oral hypoglycemic drugs; Z87.440 Personal history of urinary (tract) infections; Z90.710 Acquired absence of both cervix and uterus; Z79.899 Other long term (current) drug therapy
CPT/HCPCS: 36415; 71045; 74176; 80048; 81001; 82948; 83036; 83605; 84145; 85025; 87081; 87088; 96365; 99285; A4314; G0378; J0360; J0696; J1815; J7030